=== PATIENT | female | born 1980 ===

== ENCOUNTER 2016-12-26 00:56 | Emergency (ER) | payer MEDICAID ==
[2016-12-26 01:11] VITALS: TEMP 97.9
[2016-12-26 01:47] LABS: BASO % 0.4 % (0.0-2.0); EOS # 0.3 K/uL (0.0-0.7); EOS % 2.5 % (0.0-4.0); LYMPH % 26.8 % (20.0-40.0); MEAN CELL VOLUME 88.1 fl (81.0-99.0); MEAN CORPUSCULAR HEMOGLOBIN 29.1 pg (27.0-31.0); MEAN CORPUSCULAR HGB CONC 33.1 g/dL (33.0-37.0); MONO # 1.1 K/uL (0.0-0.8); MONO % 9.7 % (0.0-10.0); NEUT # 6.7 K/uL (1.8-7.0); NEUT % 60.6 % (50.0-75.0); RED CELL DISTRIBUTION WIDTH 13.4 % (11.5-14.5)
[2016-12-26 01:57] LABS: BLOOD UREA NITROGEN 10 mg/dl (7-17); CALCIUM 8.9 mg/dL (8.4-10.2); CARBON DIOXIDE 26 mmol/L (22-30); CHLORIDE 107 mmol/L (98-107); GFR AFRICAN-AMERICAN > 60; GLUCOSE,RANDOM 124 mg/dL (65-105); POTASSIUM 3.6 MMOL/L (3.6-5.0); SODIUM 143 mmol/l (132-148)
--- NOTE | 2016-12-26 02:11 | ED PDOC ---
HPI: Chest Pain Chief Complaint (Provider): Chest pain History Per: Patient History/Exam Limitations: no limitations <Sin Lynn - Last Filed: 12/26/16 04:11> <Frankie Moody - Last Filed: 12/27/16 01:09> Time Seen by Provider: 12/26/16 01:04 Chief Complaint (Nursing): Chest Pain Additional Complaint(s): 36 y/o F complaining of chest pain, SOB and palpitations that began yesterday afternoon. Chest pain is described as burning/pressure-like, substernal, radiates to right shoulder and right upper back. Chest pain and SOB alleviates when sitting up and aggravates by laying down. Intermittent palpitations have been present for 3 months but exacerbated yesterday. Today is her last day of Cefuroxime therapy as per infectious pharyngitis. Pt also complains of associated headache and dizziness. Pt denies fever, N/V, abdominal pain, peripheral edema. NKDA PMHx: Obesity. PSHx: Cholecystectomy. FHx: mother from [place] at age 40. SHx: Denied tobacco, alcohol or rec drugs. (Sin Lynn) Supervising Attending Note - Attestation: I have personally seen and examined this patient.: Yes I have fully participated in the care of the patient.: Yes I have reviewed all pertinent clinical information: Yes <Frankie Moody - Last Filed: 12/27/16 01:09> Past Medical History - Medical History PMH: No Chronic Diseases - Surgical History Surgical History: Cholecystectomy - Family History Family History: States: CAD, Diabetes, Hypertension <Sin Lynn - Last Filed: 12/26/16 04:11> <Frankie Moody - Last Filed: 12/27/16 01:09> Vital Signs: Last Vital Signs Temp 97.9 F 12/26/16 01:08 Pulse 65 12/26/16 03:10 Resp 18 12/26/16 03:10 BP 105/65 12/26/16 03:10 Pulse Ox 99 12/26/16 04:14 - Home Medications Home Medications: Ambulatory Orders Medication Instructions Recorded Oxycodone HCl/Acetaminophen 1 tab PO Q4 #5 tab 06/27/14 [Percocet 325 mg-5 mg] Prednisone 20 mg PO DAILY #5 tab 06/27/14 traMADol [Ultram] 50 - 100 mg PO Q6H #20 tab 05/06/16 Cyclobenzaprine [Cyclobenzaprine 10 mg PO BID #15 tab 12/26/16 HCl] - Allergies Allergies/Adverse Reactions: Allergies Allergy/AdvReac Type Severity Reaction Status Date / Time No Known Allergies Allergy Verified 06/27/14 10:10 Curb-65 Severity Score - CURB-65 Severity Score Confusion: No Bun >19mg/dl (>7mmol/L): No Respiratory Rate greater than/equal to 30: No Systolic BP <90 or Diastolic BP less than/equal 60mmHg: No Age >64: No Curb-65 Score: 0 Percentage 30-day mortality: 0.6% <Sin Lynn - Last Filed: 12/26/16 04:11> Wells Criteria for PE - Wells Criteria for Pulmonary Embolism Clinical Signs and Symptoms of DVT: No P.E is #1 Diagnosis, or Equally Likely: No Heart Rate >100: No Immobilization at least 3 days;Surgery previous 4 weeks: No Previous, objectively diagnosed PE or DVT: No Hemoptysis: No Malignancy w/treatment within 6 months, or palliative: No Total Score: 0 <Sin Lynn - Last Filed: 12/26/16 04:11> Review of Systems Constitutional: Negative for: Fever, Chills Cardiovascular: Positive for: Chest Pain, Palpitations Respiratory: Positive for: Shortness of Breath Gastrointestinal: Negative for: Nausea, Vomiting, Abdominal Pain Musculoskeletal: Positive for: Shoulder Pain, Back Pain Skin: Negative for: Rash Neurological: Negative for: Weakness, Numbness, Confusion <Sin Lynn - Last Filed: 12/26/16 04:11> Physical Exam - Physical Exam Appears: Positive for: Uncomfortable Head Exam: Positive for: NORMAL INSPECTION Skin: Positive for: Warm, Dry Eye Exam: Positive for: EOMI, PERRL ENT: Positive for: Normal ENT Inspection Neck: Positive for: Normal, Supple Cardiovascular/Chest: Positive for: Regular Rate, Rhythm Respiratory: Positive for: Normal Breath Sounds. Negative for: Accessory Muscle Use, Wheezing Gastrointestinal/Abdominal: Positive for: Normal Exam, Bowel Sounds, Soft. Negative for: Tenderness <Sin Lynn - Last Filed: 12/26/16 04:11> - Laboratory Results Result Diagrams: 12/26/16 01:40 12/26/16 01:40 - ECG O2 Sat by Pulse Oximetry: 99 <Sumit Lynno - Last Filed: 12/26/16 04:11> - Laboratory Results Result Diagrams: 12/26/16 01:40 12/26/16 01:40 <Frankie Moody - Last Filed: 12/27/16 01:09> Medical Decision Making <Sumit Lynno - Last Filed: 12/26/16 04:11> <Frankie Moody - Last Filed: 12/27/16 01:09> Medical Decision Makin36 y/o F presenting with chest pain and SOB. Plan: --CBC --CMP --Troponin --Chest X ray --EKG --Toradol --Famotidine 02:55 Pt reports NO improvment with provided medications. 03:15 Pt reports improvement. Pain and SOB have alleviated remarkably. Denies palpitations. Blood analysis, EKG and CXR were unremarkable. Pt will be discharged with Flexeril's prescription. Pt instructed to be followed by PCP and aerophysicist within 1 week. Pt counseled on the unremarkable findings on labs, and the most probably musculoskeletal etiology of her pain. Pt instructed to visit ER if intolerable chest pain and aggravation of SOB. (Sin Lynn) Disposition - Patient ED Disposition Is Patient to be Admitted: No - Disposition Disposition Time: 03:15 <Sin Lynn - Last Filed: 12/26/16 04:11> <Frankie Moody - Last Filed: 12/27/16 01:09> - Clinical Impression Clinical Impression: Chest wall pain - Disposition Referrals: Hebert Gonzalez MD [Family Provider] - Condition: GOOD Prescriptions: Cyclobenzaprine [Cyclobenzaprine HCl] 10 mg PO BID #15 tab Instructions: Chest Pain (ED), Chest Wall Pain (ED) Forms: [facility] (Eritrean) Print Language: ROMANSH
[2016-12-26 03:11] VITALS: BP 105/65; PULSE 65; RESP 18
[2016-12-26 03:41] VITALS: O2SAT 99
--- NOTE | 2016-12-26 07:29 | RAD ---
HISTORY: cp, sob COMPARISON: No prior. TECHNIQUE: Chest PA and lateral FINDINGS: LUNGS: No active pulmonary disease. PLEURA: No significant pleural effusion identified. No pneumothorax apparent. CARDIOVASCULAR: Normal. OSSEOUS STRUCTURES: No significant abnormalities. VISUALIZED UPPER ABDOMEN: Normal. OTHER FINDINGS: None. IMPRESSION: No active disease.
--- NOTE | 2016-12-26 09:07 | CARD ---
APPROVED REPORT EKG Measurement Heart [id number] <Conclusion> Normal sinus rhythm Junctional ST depression, probably normal Borderline ECG
== END 2016-12-26 03:10 | disposition home or self-care (01) ==
LOC: H.ER 00:56
DX: R07.89 Other chest pain (principal); E66.9 Obesity, unspecified; Z82.49 Family history of ischemic heart disease and other diseases of the circulatory system
CPT/HCPCS: 71020; 80048; 81025; 84484; 85025; 93005; 96374; 96375; 99283; J1885